=== PATIENT | male | born 1980 | race Caucasian/White ===

== ENCOUNTER 2018-12-30 17:52 | Emergency (ER) | payer OTHER ==
[2018-12-30] MEDS ORDERED: diphenhydrAMINE 50 MG/ML 1 ML VIAL IM STA (18:19)
[2018-12-30] MEDS ORDERED: HALOPERIDOL LACTATE 5 MG/ML 1 ML VIAL IM STA (18:20)
[2018-12-30] MEDS ORDERED: LORazepam 2 MG/ML INJ IM STA (18:20)
--- NOTE | 2018-12-30 18:21 | ED ---
Alcohol HPI - General Source: patient Mode of arrival: wheelchair Limitations: no limitations <Edith Fritz - Last Filed: 12/31/18 00:51> <Tawanda Antunez - Last Filed: 12/31/18 05:24> - General Chief Complaint: Alcohol Stated Complaint: spots on upper body Time Seen by Provider: 12/30/18 18:12 - History of Present Illness Initial Comments: 38-year-old male presenting intoxicated with chief can complaint of a rash. On exam patient is a poor historian secondary to his intoxication. (Edith Fritz) - Related Data Allergies Allergy/AdvReac Type Severity Reaction Status Date / Time No Known Allergies Allergy Verified 12/30/18 18:00 Review of Systems ROS Other: All systems not noted in ROS Statement are negative. <Edith Fritz - Last Filed: 12/31/18 00:51> ROS Other: All systems not noted in ROS Statement are negative. <Tawanda Antunez - Last Filed: 12/31/18 05:24> ROS Statement: Those systems with pertinent positive or pertinent negative responses have been documented in the HPI. Review of Systems Constitutional: Denies fever, chills Eyes: Denies change in vision, Denies pain Ears, nose, mouth, throat: Denies headaches, Denies sore throat Cardiovascular: Denies chest pain. Denies palpitations Respiratory: Denies shortness of breath, Denies cough Gastrointestinal: Denies abdominal pain. Denies nausea, vomiting, diarrhea. Genitourinary: Denies hematuria, Denies infections Musculoskeletal: Denies pain, Denies swelling Integumentary: Positive rash Neurological: Denies headache, focal weakness, focal numbness Psychiatric: Denies anxiety, Denies depression Hematologic/Lymphatic: Denies easy bleeding or bruising (Edith Fritz) Past Medical History Past Medical History: No Reported History History of Any Multi-Drug Resistant Organisms: None Reported Past Surgical History: Unable to Obtain Past Psychological History: No Psychological Hx Reported Smoking Status: Current every day smoker Past Alcohol Use History: Abuse, Heavy Past Drug Use History: Marijuana <Edith Fritz - Last Filed: 12/31/18 00:51> General Exam Limitations: no limitations <Edith Fritz - Last Filed: 12/31/18 00:51> <Tawanda Antunez - Last Filed: 12/31/18 05:24> - General Exam Comments Initial Comments: General: Awake, alert, No acute Distress. Intoxicated. Slurred speech HENT: Normocephalic. Atraumatic Eyes: PERRL. EOMI. No scleral icterus. No injected conjunctiva Neck: Full ROM Chest/Lungs: Clear to auscultation bilaterally. No wheezing, rhonchi, or rales Cardiac: Regular rate, rhythm. No murmurs or rubs Abdomen/GI: Soft, nontender, nondistended. No rebound, guarding, or rigidity. Musculoskeletal: Full ROM Skin: Warm, dry, intact. Small raised papules on trunk. No surrounding erythema. Neurologic: A/Ox3, no weakness, no sensory deficit, unsteady gait, no coordination deficit (Edith Fritz) Vital Signs 12/30/18 12/30/18 12/30/18 17:57 19:17 19:30 Temperature 97.7 F 97.9 F Pulse Rate 108 H 87 89 Respiratory 18 18 18 Rate Blood Pressure 148/94 134/92 124/87 O2 Sat by Pulse 99 97 96 Oximetry 12/30/18 12/30/18 12/31/18 21:07 23:32 00:30 Temperature 97.7 F Pulse Rate 80 72 74 Respiratory 20 18 18 Rate Blood Pressure 113/69 127/74 115/66 O2 Sat by Pulse 95 94 L 95 Oximetry 12/31/18 12/31/18 12/31/18 01:30 02:47 04:06 Temperature 97.9 F Pulse Rate 74 77 96 Respiratory 16 16 20 Rate Blood Pressure 112/59 119/72 126/100 O2 Sat by Pulse 95 93 L 96 Oximetry Procedures - Restraint - Face to Face Restraint Occurrence 1 Patient's Immediate Situation: Endangers staff safety, Violent behavior Patient's Reaction to the Intervention: Hostile Patient's Medical & Behavioral Condition: Awake, Alert Need to Continue or Terminate Restraint or Seclusion: Continue Face to Face Eval of Restraint Date: 12/30/18 Face to Face Eval of Restraint Time: 18:48 <Edith Fritz - Last Filed: 12/31/18 00:51> <Tawanda Antunez - Last Filed: 12/31/18 05:24> - Restraint - Face to Face Restraint Occurrence 1 Need to Continue or Terminate Restraint/Seclusion - Comment: Patient violent and not redirectable. (Edith Fritz) Medical Decision Making <Edith Fritz - Last Filed: 12/31/18 00:51> <Tawanda Antunez - Last Filed: 12/31/18 05:24> - Medical Decision Making 38-year-old male presenting to the emergency department with chief complaint of rash. Initial presentation the patient is intoxicated with slurred speech and is being uncooperative. He is a poor historian secondary to his intoxication. He should continue to refuse to be cooperative and required Haldol, Ativan, Benadryl. Patient's rash does not appear to be infectious. This consistent with either insect bites or acne. No evidence of trauma. 184 Patient uncooperative and striking staff. Security was called to bedside in 4. Restraints were initiated. Restraints removed. BAL 0.242. The remainder of the patient's care will be signed out to the oncoming physician while he awaits sobriety. (Edith Fritz ) Patient's care is signed out at shift change awaiting sobriety. Patient is clinically sober at 5:30 AM. His blood alcohol level indicates that he will not be sober until 7:30. Family was able to pick the patient up in the emergency department. Patient is agreeable and eager for discharge. Vital signs are stable, well-appearing patient discharged into the care of his family. (Tawanda Antunez) Disposition Is patient prescribed a controlled substance at d/c from ED?: No <Edith Fritz - Last Filed: 12/31/18 00:51> Is patient prescribed a controlled substance at d/c from ED?: No <Tawanda Antunez - Last Filed: 12/31/18 05:24> Clinical Impression: Alcohol intoxication, Rash and nonspecific skin eruption Disposition: HOME SELF-CARE Condition: Good Instructions (If sedation given, give patient instructions): Alcohol Intoxication (ED), Acute Rash (ED) Referrals: None,Stated [Primary Care Provider] - 1-2 days Shabnam Ren MD [REFERRING] - 1-2 days Sekou Guan MD [STAFF PHYSICIAN] - 1-2 days
[2018-12-31 07:02] VITALS: BP 126/64; PULSE 102; RESP 16; TEMP 98.1
== END 2018-12-31 07:34 | disposition home or self-care (01) ==
LOC: EC 17:52
DX: F10.129 Alcohol abuse with intoxication, unspecified (principal); R21 Rash and other nonspecific skin eruption; R47.81 Slurred speech; F17.200 Nicotine dependence, unspecified, uncomplicated; Z78.1 Physical restraint status
CPT/HCPCS: 82075; 99284; 96372 ×3; J2060; J1200; J1630